=== PATIENT | female | born 1970 | race Two or more races ===

== ENCOUNTER 2018-09-24 11:10 | Emergency (ER) | payer OTHER ==
[~2018-09-24] VITALS: Ht 162.6 cm; Wt 67.6 kg
[~2018-09-24 11:10] MED LIST: FOLIC ACID1 MG PO; METHOTREXATE2.5 MG PO
== END 2018-09-24 16:52 | disposition home or self-care (01) ==
LOC: ER 11:10
DX: M62.830 Muscle spasm of back (principal)